=== PATIENT | female | born 1970 | race Caucasian/White ===

== ENCOUNTER 2022-10-31 15:54 | Emergency (ER) | payer MEDICAID ==
[~2022-10-31] VITALS: Ht 162.6 cm; Wt 71.0 kg
[2022-10-31 16:06] VITALS: O2SAT 100
[2022-10-31] MEDS ORDERED: AMOX1TAB16 MT (20:06)
[2022-10-31] MEDS ORDERED: IBUP-2028 MT (20:06)
[2022-10-31 20:34] VITALS: BP 141/59; PULSE 60; RESP 18; TEMP 98.6
== END 2022-10-31 20:38 | disposition home or self-care (01) ==
LOC: ER 15:54
DX: L03.032 Cellulitis of left toe (principal)
CPT/HCPCS: 99283